=== PATIENT | male | born 1950 | race Caucasian/White ===

== ENCOUNTER 2018-11-12 14:04 | Inpatient (IN) ==
[2018-11-12 15:13] LABS: Basophils # 0.1 10*3/uL (0.0-0.2); Eosinophils # 0.1 10*3/uL (0.0-0.87); Eosinophils % 1.5 % (0.00-10.9); Hematocrit 37.2 VOL% (42.0-52.0); Hemoglobin 12.6 GM/DL (14.0-18.0); Immature Granulocytes % 0.4 %; Immature Granulocytes Absolute 0.03 #; Lymphocytes # 1.1 10*3/uL (1.4-4.0); Lymphocytes % 16.5 % (21.2-54.2); Mean Corpuscular HGB Conc 33.9 GM/DL (32-36); Mean Corpuscular Volume 103.9 FL (87-102); Mean Platelet Volume 11.9 FL (9.6-12.0); Monocytes % 6.3 % (1.7-12.7); Neutrophils % 74.3 % (38.7-73.9); Platelet Count 109 T/CUMM (130-400); Red Blood Count 3.58 MC/CUMM (3.8-5.5); Red Cell Distribution Width 19.7 % (9.3-17.3); White Blood Count 6.7 T/CUMM (4-12)
[2018-11-12] MEDS ORDERED: SODIUM CHLORIDE 0.9% 1,000 ML IV STA ×2 (15:16→16:01)
[2018-11-12 15:22] LABS: INR 1.3; PT Patient Result 14.4 SECS; Partial Thromboplastin Time 30.8 SECS (0-40)
[2018-11-12 15:34] LABS: Albumin 1.9 G/DL (3.4-5.0); Calcium 8.3 MG/DL (8.5-10.1); Osmolality,Calculated 277.5 MOS/KG (273-304); Total Protein 7.6 G/DL (6.4-8.3)
[2018-11-12] MEDS ORDERED: PIPERACILLIN/TAZOBACTAM 3,375 MG in SODIUM CHLORIDE 0.9% 100 ML IV STA (16:00)
[2018-11-12] MEDS: SODIUM CHLOR 0.9% KCL 20 MEQ 20 MEQ/1,000 ML BAG IV SCH (17:08)
[2018-11-12 18:45] LABS: Hepatitis B Core IgM Quant 0.12 Index; Hepatitis B Surface Ag Quant < 0.10 Index; Hepatitis B Surface Ag Result Negative (Negative); Hepatitis C Virus Ab Quant 0.04 Index; Hepatitis C Virus Ab Result Negative (Negative)
[2018-11-12 18:52] LABS: Apearance,Urine CLEAR (Clear); Bacteria,Urine Occasional /HPF (Few); Blood, Urine Negative (Negative); Glucose,Urine (UA) Negative (Negative); Hyaline Casts,Urine 1 /LPF (0-3); Ketones,Urine Negative (Negative); Nitrite,Urine Negative (Negative); Protein,Urine Negative; RBC,Urine 2 /HPF (0-4); Squamous Epithelial Cell,Urine Occasional /HPF (0-10); Urine Color Amber (Yellow); Urine Specific Gravity > 1.060 (1.001-1.035); WBC,Urine 5 /HPF (0-6)
[2018-11-12 19:07] LABS: Bilirubin,Urine Moderate mg/dL (Negative)
[2018-11-12] MEDS: GABAPENTIN 300 MG CAPSULE PO SCH (21:38)
[2018-11-12] MEDS: DULoxetine 30 MG CAPSULE PO SCH (21:38)
[2018-11-13] MEDS: PIPERACILLIN/TAZOBACTAM 3,375 MG in SODIUM CHLORIDE 0.9% 100 ML IV SCH ×3 (00:45→17:16)
[2018-11-13 03:08] LABS: Basophils # 0.1 10*3/uL (0.0-0.2); Eosinophils # 0.1 10*3/uL (0.0-0.87); Eosinophils % 1.2 % (0.00-10.9); Hematocrit 32.4 VOL% (42.0-52.0); Hemoglobin 10.8 GM/DL (14.0-18.0); Immature Granulocytes % 0.3 %; Immature Granulocytes Absolute 0.02 #; Lymphocytes % 16.3 % (21.2-54.2); Mean Corpuscular HGB Conc 33.3 GM/DL (32-36); Mean Corpuscular Volume 104.9 FL (87-102); Mean Platelet Volume 12.2 FL (9.6-12.0); Neutrophils % 71.2 % (38.7-73.9); Platelet Count 101 T/CUMM (130-400); Red Blood Count 3.09 MC/CUMM (3.8-5.5); Red Cell Distribution Width 19.7 % (9.3-17.3)
[2018-11-13 03:33] LABS: Platelet Estimate Adequate
[2018-11-13 03:34] LABS: Target Cells 2+
[2018-11-13 03:46] LABS: Albumin 1.5 G/DL (3.4-5.0); Bilirubin,Total 8.2 MG/DL (0.2-1.0); Calcium 7.5 MG/DL (8.5-10.1); Risk Ratio 17.55; Thyroid Stimulating Hormone 13.5 uIU/ml (0.358-3.74); Total Protein 6.2 G/DL (6.4-8.3); VLDL CHOLESTEROL 52.4 MG/DL
[2018-11-13] MEDS: SODIUM CHLOR 0.9% KCL 20 MEQ 20 MEQ/1,000 ML BAG IV SCH ×4 (06:00→18:04)
[2018-11-13] MEDS ORDERED: CLOPIDOGREL 75 MG TABLET PO SCH (09:00)
[2018-11-13] MEDS ORDERED: TAMSULOSIN 0.4 MG CAPSULE PO SCH (09:00)
[2018-11-13] MEDS: ASPIRIN EC 81 MG TABLET PO SCH (09:56)
[2018-11-13] MEDS: FINASTERIDE 5 MG TABLET PO SCH (09:56)
[2018-11-13] MEDS: DULoxetine 30 MG CAPSULE PO SCH ×2 (09:56→20:25)
[2018-11-13] MEDS: THYROID 60 MG TABLET PO SCH (09:56)
[2018-11-13] MEDS: GABAPENTIN 300 MG CAPSULE PO SCH ×3 (09:56→20:25)
[2018-11-13] MEDS: BACITRACIN OINT 0.9 GM PACK TOP SCH (12:15)
[2018-11-13] MEDS: SODIUM CHLORIDE 0.9% 1,000 ML IV SCH ×2 (13:03→13:53)
[2018-11-14] MEDS: PIPERACILLIN/TAZOBACTAM 3,375 MG in SODIUM CHLORIDE 0.9% 100 ML IV SCH ×3 (00:19→16:22)
[2018-11-14 05:08] LABS: Basophils # 0.1 10*3/uL (0.0-0.2); Basophils % 1.1 % (0.0-0.8); Eosinophils # 0.1 10*3/uL (0.0-0.87); Eosinophils % 1.5 % (0.00-10.9); Hematocrit 31.8 VOL% (42.0-52.0); Hemoglobin 10.9 GM/DL (14.0-18.0); Immature Granulocytes % 0.4 %; Immature Granulocytes Absolute 0.03 #; Lymphocytes # 1.1 10*3/uL (1.4-4.0); Lymphocytes % 16.1 % (21.2-54.2); Mean Corpuscular HGB Conc 34.3 GM/DL (32-36); Mean Corpuscular Volume 103.6 FL (87-102); Mean Platelet Volume 12.3 FL (9.6-12.0); Monocytes % 9.7 % (1.7-12.7); Neutrophils % 71.2 % (38.7-73.9); Platelet Count 92 T/CUMM (130-400); Red Blood Count 3.07 MC/CUMM (3.8-5.5); Red Cell Distribution Width 18.9 % (9.3-17.3); White Blood Count 7.1 T/CUMM (4-12)
[2018-11-14 05:22] LABS: Albumin 1.6 G/DL (3.4-5.0); Bilirubin,Total 7.9 MG/DL (0.2-1.0); Calcium 7.4 MG/DL (8.5-10.1); Total Protein 6.5 G/DL (6.4-8.3)
[2018-11-14 05:26] LABS: % Iron Saturation 95.1 % (18-50); Ferritin 1128.3 ng/ml (26-388)
[2018-11-14] MEDS: THYROID 60 MG TABLET PO SCH (07:17)
[2018-11-14 08:04] LABS: Free T4 (Free Thyroxine) 1.06 NG/DL (0.76-1.46)
[2018-11-14] MEDS: SODIUM CHLORIDE 0.9% 1,000 ML IV SCH ×2 (09:24→14:41)
[2018-11-14] MEDS: BACITRACIN OINT 0.9 GM PACK TOP SCH (09:25)
[2018-11-14] MEDS: FINASTERIDE 5 MG TABLET PO SCH (09:25)
[2018-11-14] MEDS: GABAPENTIN 300 MG CAPSULE PO SCH ×3 (09:25→20:40)
[2018-11-14] MEDS: POTASSIUM CHLORIDE 20 MEQ TABLET PO SCH ×2 (09:25→12:23)
[2018-11-14] MEDS: DULoxetine 30 MG CAPSULE PO SCH ×2 (09:25→20:40)
[2018-11-14] MEDS: ASPIRIN EC 81 MG TABLET PO SCH (09:25)
[2018-11-15] MEDS: PIPERACILLIN/TAZOBACTAM 3,375 MG in SODIUM CHLORIDE 0.9% 100 ML IV SCH ×3 (01:11→16:30)
[2018-11-15] MEDS ORDERED: traMADol 50 MG TABLET PO ONE (04:00)
[2018-11-15 06:05] LABS: Basophils # 0.1 10*3/uL (0.0-0.2); Basophils % 0.8 % (0.0-0.8); Eosinophils # 0.1 10*3/uL (0.0-0.87); Eosinophils % 1.5 % (0.00-10.9); Hematocrit 33.6 VOL% (42.0-52.0); Hemoglobin 11.4 GM/DL (14.0-18.0); Immature Granulocytes % 0.3 %; Immature Granulocytes Absolute 0.02 #; Lymphocytes # 1.1 10*3/uL (1.4-4.0); Lymphocytes % 14.3 % (21.2-54.2); Mean Corpuscular HGB Conc 33.9 GM/DL (32-36); Mean Corpuscular Volume 105.7 FL (87-102); Mean Platelet Volume 11.9 FL (9.6-12.0); Monocytes % 9.4 % (1.7-12.7); Neutrophils % 73.7 % (38.7-73.9); Platelet Count 107 T/CUMM (130-400); Red Blood Count 3.18 MC/CUMM (3.8-5.5); Red Cell Distribution Width 18.8 % (9.3-17.3); White Blood Count 7.8 T/CUMM (4-12)
[2018-11-15] MEDS: SODIUM CHLORIDE 0.9% 1,000 ML IV SCH (06:18)
[2018-11-15 06:24] LABS: Albumin 1.5 G/DL (3.4-5.0); Bilirubin,Direct 6.52 MG/DL (0.0-0.20); Bilirubin,Total 8.5 MG/DL (0.2-1.0); Calcium 7.8 MG/DL (8.5-10.1); Osmolality,Calculated 271.1 MOS/KG (273-304); Total Protein 6.4 G/DL (6.4-8.3); Total Protein 6.6 G/DL (6.4-8.3)
[2018-11-15] MEDS: THYROID 60 MG TABLET PO SCH (07:07)
[2018-11-15] MEDS: POTASSIUM CHLORIDE RIDER 10 MEQ in PREMIX 1 EACH IV PRN ×2 (07:13→09:04)
[2018-11-15] MEDS: ASPIRIN EC 81 MG TABLET PO SCH (09:03)
[2018-11-15] MEDS: DULoxetine 30 MG CAPSULE PO SCH ×2 (09:03→22:10)
[2018-11-15] MEDS: GABAPENTIN 300 MG CAPSULE PO SCH ×3 (09:04→22:10)
[2018-11-15] MEDS: BACITRACIN OINT 0.9 GM PACK TOP SCH (09:04)
[2018-11-15] MEDS: FINASTERIDE 5 MG TABLET PO SCH (09:04)
[2018-11-15] MEDS ORDERED: POTASSIUM CHLORIDE 20 MEQ TABLET PO ONE (10:22)
[2018-11-15] MEDS: MORPHINE 4 MG/1 ML VIAL IV PRN (17:26)
[2018-11-16] MEDS: PIPERACILLIN/TAZOBACTAM 3,375 MG in SODIUM CHLORIDE 0.9% 100 ML IV SCH ×2 (01:35→09:38)
[2018-11-16] MEDS: THYROID 60 MG TABLET PO SCH (06:03)
[2018-11-16 06:33] LABS: Basophils # 0.1 10*3/uL (0.0-0.2); Basophils % 1.3 % (0.0-0.8); Eosinophils # 0.2 10*3/uL (0.0-0.87); Eosinophils % 2.9 % (0.00-10.9); Hemoglobin 11.7 GM/DL (14.0-18.0); Immature Granulocytes % 0.4 %; Immature Granulocytes Absolute 0.03 #; Lymphocytes # 1.3 10*3/uL (1.4-4.0); Lymphocytes % 16.2 % (21.2-54.2); Mean Corpuscular HGB Conc 33.4 GM/DL (32-36); Mean Corpuscular Volume 106.4 FL (87-102); Mean Platelet Volume 11.9 FL (9.6-12.0); Monocytes % 9.4 % (1.7-12.7); Neutrophils % 69.8 % (38.7-73.9); Platelet Count 103 T/CUMM (130-400); Red Blood Count 3.29 MC/CUMM (3.8-5.5); Red Cell Distribution Width 18.9 % (9.3-17.3); White Blood Count 7.9 T/CUMM (4-12)
[2018-11-16 07:05] LABS: Albumin 1.5 G/DL (3.4-5.0); Bilirubin,Direct 6.43 MG/DL (0.0-0.20); Bilirubin,Indirect 1.4 MG/DL (0.0-1.0); Bilirubin,Total 7.8 MG/DL (0.2-1.0); Calcium 7.3 MG/DL (8.5-10.1); Osmolality,Calculated 272.8 MOS/KG (273-304); Total Protein 6.4 G/DL (6.4-8.3)
[2018-11-16] MEDS ORDERED: POTASSIUM CHLORIDE 20 MEQ TABLET PO ONE (07:18)
[2018-11-16] MEDS: BACITRACIN OINT 0.9 GM PACK TOP SCH (09:35)
[2018-11-16] MEDS: GABAPENTIN 300 MG CAPSULE PO SCH (09:35)
[2018-11-16] MEDS: DULoxetine 30 MG CAPSULE PO SCH (09:35)
[2018-11-16] MEDS: ASPIRIN EC 81 MG TABLET PO SCH (09:35)
[2018-11-16] MEDS: FINASTERIDE 5 MG TABLET PO SCH (09:35)
[2018-11-16] MEDS: MORPHINE 4 MG/1 ML VIAL IV PRN (11:29)
[2018-11-16 13:04] VITALS: BP 111/72
== END 2018-11-16 13:10 | DRG 433 ==
LOC: N.ED 14:04 → N.EDINP 16:04 → N.5E 18:58
PROVIDERS: ADMIT Internal Medicine; ATTEND Internal Medicine

== ENCOUNTER 2018-12-05 06:45 | Inpatient (IN) ==
[2018-12-05] MEDS ORDERED: SODIUM CHLORIDE 0.9% 500 ML IV STA ×2 (07:06→07:39)
[2018-12-05 07:15] LABS: Basophils % 0.2 % (0.0-0.8); Eosinophils % 0.1 % (0.00-10.9); Hematocrit 33.4 VOL% (42.0-52.0); Hemoglobin 11.3 GM/DL (14.0-18.0); Immature Granulocytes % 0.7 %; Immature Granulocytes Absolute 0.12 #; Lymphocytes # 0.6 10*3/uL (1.4-4.0); Lymphocytes % 3.7 % (21.2-54.2); Mean Corpuscular HGB Conc 33.8 GM/DL (32-36); Mean Corpuscular Volume 106.7 FL (87-102); Mean Platelet Volume 10.8 FL (9.6-12.0); Neutrophils % 88.3 % (38.7-73.9); Platelet Count 128 T/CUMM (130-400); Red Blood Count 3.13 MC/CUMM (3.8-5.5); Red Cell Distribution Width 15.2 % (9.3-17.3); White Blood Count 16.8 T/CUMM (4-12)
[2018-12-05 07:37] LABS: Albumin 1.5 G/DL (3.4-5.0); Bilirubin,Total 3.4 MG/DL (0.2-1.0); Calcium 7.9 MG/DL (8.5-10.1); Osmolality,Calculated 272.2 MOS/KG (273-304); Total Protein 6.3 G/DL (6.4-8.3)
[2018-12-05 07:38] LABS: Band Neutrophils 5 % (0-10); Hypochromasia 1+; Lymphocytes 3 % (20-55); Segmented Neutrophils 89 % (50-85); Total Cells Counted 100
[2018-12-05 07:39] LABS: INR 1.5; PT Patient Result 16.1 SECS; Platelet Estimate Decreased
[2018-12-05] MEDS ORDERED: NOREPINEPHRINE 4 MG/4 ML VIAL IV ONE (08:04)
[2018-12-05] MEDS: NOREPINEPHRINE 8 MG in SODIUM CHLORIDE 0.9% 242 ML IV PRN ×2 (08:13→15:14)
[2018-12-05] MEDS ORDERED: LACTULOSE 20 GM/30 ML UDCUP PO PRN (09:52)
[2018-12-05] MEDS ORDERED: ONDANSETRON 4 MG/2 ML VIAL IV PRN (09:52)
[2018-12-05] MEDS: PANTOPRAZOLE 40 MG TABLET PO SCH (10:51)
[2018-12-05] MEDS: ALBUMIN 25% 25 GM in PREMIX 1 EACH IV SCH ×2 (10:54→18:07)
[2018-12-06] MEDS: PHENYLEPHRINE DRIP 40 MG/250 ML PREMIX IV PRN ×3 (00:54→13:29)
[2018-12-06] MEDS: ALBUMIN 25% 25 GM in PREMIX 1 EACH IV SCH ×2 (02:39→10:54)
[2018-12-06] MEDS: NOREPINEPHRINE 8 MG in SODIUM CHLORIDE 0.9% 242 ML IV PRN ×3 (03:25→15:59)
[2018-12-06 04:42] LABS: Basophils % 0.1 % (0.0-0.8); Hematocrit 29.8 VOL% (42.0-52.0); Immature Granulocytes % 2.5 %; Immature Granulocytes Absolute 0.56 #; Lymphocytes # 0.6 10*3/uL (1.4-4.0); Lymphocytes % 2.8 % (21.2-54.2); Mean Corpuscular HGB Conc 33.6 GM/DL (32-36); Mean Corpuscular Volume 106.8 FL (87-102); Mean Platelet Volume 11.7 FL (9.6-12.0); Monocytes % 7.4 % (1.7-12.7); Neutrophils % 87.2 % (38.7-73.9); Platelet Count 108 T/CUMM (130-400); Red Blood Count 2.79 MC/CUMM (3.8-5.5); Red Cell Distribution Width 15.2 % (9.3-17.3); White Blood Count 22.4 T/CUMM (4-12)
[2018-12-06 05:40] LABS: Albumin 2.6 G/DL (3.4-5.0); Calcium 8.1 MG/DL (8.5-10.1); Thyroid Stimulating Hormone 5.63 uIU/ml (0.358-3.74); Total Protein 6.6 G/DL (6.4-8.3)
[2018-12-06 06:17] LABS: Band Neutrophils 9 % (0-10); Hypochromasia 1+; Lymphocytes 1 % (20-55); Platelet Estimate Decreased; Segmented Neutrophils 89 % (50-85); Total Cells Counted 100
[2018-12-06] MEDS: THYROID 60 MG TABLET PO SCH (07:02)
[2018-12-06] MEDS: PANTOPRAZOLE 40 MG TABLET PO SCH (08:34)
[2018-12-06] MEDS: LACTULOSE 20 GM/30 ML UDCUP PO SCH ×3 (09:50→22:06)
[2018-12-06] MEDS ORDERED: cefTRIAXone 1,000 MG VIAL IM SCH (14:00)
[2018-12-06] MEDS: cefTRIAXone 1,000 MG in SYRINGE 1 EACH IV SCH (14:51)
[2018-12-06] MEDS ORDERED: LORazepam 2 MG/1 ML VIAL IV PRN (21:41)
[2018-12-06 23:13] LABS: Apearance,Urine CLOUDY (Clear); Bacteria,Urine Moderate /HPF (Few); Bilirubin,Urine Negative (Negative); Blood, Urine Large mg/dL (Negative); Glucose,Urine (UA) Negative (Negative); Hyaline Casts,Urine 25 /LPF (0-3); Ketones,Urine Negative (Negative); Mucus,Urine Occasional /LPF (Occasional); Nitrite,Urine Positive (Negative); Protein,Urine 100 MG/DL; RBC,Urine 173 /HPF (0-4); Urine Color Amber (Yellow); Urine Specific Gravity 1.018 (1.001-1.035); WBC,Urine 374 /HPF (0-6)
[2018-12-07] MEDS: LACTULOSE 20 GM/30 ML UDCUP PO SCH ×3 (04:02→13:06)
[2018-12-07 04:54] LABS: Albumin 2.4 G/DL (3.4-5.0); Bilirubin,Total 3.6 MG/DL (0.2-1.0); Calcium 7.9 MG/DL (8.5-10.1); Osmolality,Calculated 275.1 MOS/KG (273-304); Total Protein 6.4 G/DL (6.4-8.3)
[2018-12-07] MEDS: THYROID 60 MG TABLET PO SCH (06:28)
[2018-12-07 08:18] LABS: Basophils # 0.1 10*3/uL (0.0-0.2); Basophils % 0.4 % (0.0-0.8); Eosinophils % 0.2 % (0.00-10.9); Hematocrit 32.3 VOL% (42.0-52.0); Hemoglobin 10.6 GM/DL (14.0-18.0); Immature Granulocytes Absolute 0.33 #; Lymphocytes % 5.9 % (21.2-54.2); Mean Corpuscular HGB Conc 32.8 GM/DL (32-36); Mean Corpuscular Volume 110.6 FL (87-102); Mean Platelet Volume 11.8 FL (9.6-12.0); Monocytes % 8.3 % (1.7-12.7); Neutrophils % 83.2 % (38.7-73.9); Platelet Count 84 T/CUMM (130-400); Red Blood Count 2.92 MC/CUMM (3.8-5.5); Red Cell Distribution Width 15.3 % (9.3-17.3); White Blood Count 16.7 T/CUMM (4-12)
[2018-12-07 08:35] LABS: Band Neutrophils 4 % (0-10); Hypochromasia 1+; Lymphocytes 1 % (20-55); Platelet Estimate Decreased; Segmented Neutrophils 87 % (50-85); Total Cells Counted 100
[2018-12-07] MEDS: PANTOPRAZOLE 40 MG TABLET PO SCH ×2 (09:29→13:04)
[2018-12-07] MEDS ORDERED: HALOPERIDOL 5 MG/ML AMP IV PRN (10:25)
[2018-12-07] MEDS: metroNIDAZOLE INJ 500 MG in PREMIX 1 EACH IV SCH ×2 (13:09→20:15)
[2018-12-07] MEDS: cefTRIAXone 1,000 MG in SYRINGE 1 EACH IV SCH (14:28)
[2018-12-07] MEDS: GENTAMICIN INJ 500 MG in SODIUM CHLORIDE 0.9% 100 ML IV SCH (16:25)
[2018-12-07] MEDS ORDERED: ALBUTEROL/IPRATROPIUM 3 ML NEB RESP TX PRN (21:19)
[2018-12-07] MEDS: NICOTINE 21 MG/24 HR PATCH TRANSDERM SCH (22:00)
[2018-12-08] MEDS: metroNIDAZOLE INJ 500 MG in PREMIX 1 EACH IV SCH ×3 (04:43→20:42)
[2018-12-08 04:59] LABS: Basophils % 0.2 % (0.0-0.8); Eosinophils # 0.1 10*3/uL (0.0-0.87); Eosinophils % 0.8 % (0.00-10.9); Hematocrit 34.8 VOL% (42.0-52.0); Hemoglobin 11.4 GM/DL (14.0-18.0); Immature Granulocytes % 0.4 %; Immature Granulocytes Absolute 0.04 #; Lymphocytes # 1.2 10*3/uL (1.4-4.0); Mean Corpuscular HGB Conc 32.8 GM/DL (32-36); Mean Corpuscular Volume 106.1 FL (87-102); Mean Platelet Volume 11.1 FL (9.6-12.0); Monocytes % 8.6 % (1.7-12.7); Platelet Count 89 T/CUMM (130-400); Red Blood Count 3.28 MC/CUMM (3.8-5.5); Red Cell Distribution Width 14.4 % (9.3-17.3); White Blood Count 10.6 T/CUMM (4-12)
[2018-12-08 05:31] LABS: Platelet Estimate Decreased; Target Cells Few
[2018-12-08 05:37] LABS: Albumin 2.1 G/DL (3.4-5.0); Calcium 8.5 MG/DL (8.5-10.1); Total Protein 6.4 G/DL (6.4-8.3)
[2018-12-08] MEDS: THYROID 60 MG TABLET PO SCH (06:23)
[2018-12-08] MEDS: POTASSIUM CHLORIDE 20 MEQ TABLET PO SCH ×4 (08:02→20:42)
[2018-12-08] MEDS: NICOTINE 21 MG/24 HR PATCH TRANSDERM SCH (09:18)
[2018-12-08] MEDS: LACTULOSE 20 GM/30 ML UDCUP PO SCH (09:18)
[2018-12-08] MEDS: PANTOPRAZOLE 40 MG TABLET PO SCH (09:19)
[2018-12-08] MEDS: cefTRIAXone 1,000 MG in SYRINGE 1 EACH IV SCH (14:44)
[2018-12-08] MEDS ORDERED: NITROGLYCERIN SL 0.4 MG TABLET SL PRN (15:07)
[2018-12-08] MEDS: GENTAMICIN INJ 500 MG in SODIUM CHLORIDE 0.9% 100 ML IV SCH (16:03)
[2018-12-09] MEDS: metroNIDAZOLE INJ 500 MG in PREMIX 1 EACH IV SCH ×3 (05:36→20:26)
[2018-12-09 06:25] LABS: Albumin 2.3 G/DL (3.4-5.0); Bilirubin,Total 4.1 MG/DL (0.2-1.0); Calcium 8.3 MG/DL (8.5-10.1); Total Protein 6.8 G/DL (6.4-8.3)
[2018-12-09] MEDS: THYROID 60 MG TABLET PO SCH (06:45)
[2018-12-09] MEDS: ASPIRIN EC 81 MG TABLET PO SCH (09:24)
[2018-12-09] MEDS: SPIRONOLACTONE 25 MG TABLET PO SCH (09:24)
[2018-12-09] MEDS: FINASTERIDE 5 MG TABLET PO SCH (09:24)
[2018-12-09] MEDS: TAMSULOSIN 0.4 MG CAPSULE PO SCH (09:24)
[2018-12-09] MEDS: LACTULOSE 20 GM/30 ML UDCUP PO SCH (09:25)
[2018-12-09] MEDS: CLOPIDOGREL 75 MG TABLET PO SCH (09:25)
[2018-12-09] MEDS: NICOTINE 21 MG/24 HR PATCH TRANSDERM SCH (09:25)
[2018-12-09] MEDS: PANTOPRAZOLE 40 MG TABLET PO SCH (09:25)
[2018-12-09] MEDS: CHOLECALCIFEROL 1,000 UNIT TABLET PO SCH (09:31)
[2018-12-09] MEDS: POTASSIUM CHLORIDE RIDER 10 MEQ in PREMIX 1 EACH IV PRN ×3 (09:32→13:10)
[2018-12-09] MEDS ORDERED: MAGNESIUM SULF RIDER 2 GM in PREMIX 1 EACH IV ONE (10:22)
[2018-12-09] MEDS: cefTRIAXone 2,000 MG in SYRINGE 1 EACH IV SCH (16:30)
[2018-12-09] MEDS: AMPICILLIN 500 MG CAPSULE PO SCH ×2 (17:37→20:26)
[2018-12-10] MEDS: metroNIDAZOLE INJ 500 MG in PREMIX 1 EACH IV SCH ×2 (03:59→15:40)
[2018-12-10 05:45] LABS: Bilirubin,Total 3.7 MG/DL (0.2-1.0); Calcium 8.4 MG/DL (8.5-10.1); Osmolality,Calculated 272.8 MOS/KG (273-304); Total Protein 6.2 G/DL (6.4-8.3)
[2018-12-10] MEDS: THYROID 60 MG TABLET PO SCH (06:00)
[2018-12-10] MEDS: ASPIRIN EC 81 MG TABLET PO SCH (08:59)
[2018-12-10] MEDS: PANTOPRAZOLE 40 MG TABLET PO SCH (08:59)
[2018-12-10] MEDS: LACTULOSE 20 GM/30 ML UDCUP PO SCH (08:59)
[2018-12-10] MEDS: TAMSULOSIN 0.4 MG CAPSULE PO SCH (08:59)
[2018-12-10] MEDS: AMPICILLIN 500 MG CAPSULE PO SCH ×4 (09:00→21:09)
[2018-12-10] MEDS: CLOPIDOGREL 75 MG TABLET PO SCH (09:00)
[2018-12-10] MEDS: FINASTERIDE 5 MG TABLET PO SCH (09:00)
[2018-12-10] MEDS: CHOLECALCIFEROL 1,000 UNIT TABLET PO SCH (09:00)
[2018-12-10] MEDS: NICOTINE 21 MG/24 HR PATCH TRANSDERM SCH (09:00)
[2018-12-10] MEDS: SPIRONOLACTONE 25 MG TABLET PO SCH (09:00)
[2018-12-10] MEDS: POTASSIUM CHLORIDE RIDER 10 MEQ in PREMIX 1 EACH IV PRN ×3 (12:16→14:32)
[2018-12-10] MEDS: MORPHINE 4 MG/1 ML VIAL IV PRN (15:39)
[2018-12-10] MEDS: cefTRIAXone 2,000 MG in SYRINGE 1 EACH IV SCH (15:39)
[2018-12-11 04:57] LABS: Bilirubin,Total 3.6 MG/DL (0.2-1.0); Calcium 8.1 MG/DL (8.5-10.1); Osmolality,Calculated 270.1 MOS/KG (273-304); Total Protein 6.7 G/DL (6.4-8.3)
[2018-12-11] MEDS: THYROID 60 MG TABLET PO SCH (06:00)
[2018-12-11] MEDS: TAMSULOSIN 0.4 MG CAPSULE PO SCH (08:48)
[2018-12-11] MEDS: ASPIRIN EC 81 MG TABLET PO SCH (08:48)
[2018-12-11] MEDS: AMPICILLIN 500 MG CAPSULE PO SCH ×2 (08:48→13:31)
[2018-12-11] MEDS: FINASTERIDE 5 MG TABLET PO SCH (08:48)
[2018-12-11] MEDS: NICOTINE 21 MG/24 HR PATCH TRANSDERM SCH (08:48)
[2018-12-11] MEDS: CLOPIDOGREL 75 MG TABLET PO SCH (08:48)
[2018-12-11] MEDS: CHOLECALCIFEROL 1,000 UNIT TABLET PO SCH (08:48)
[2018-12-11] MEDS: PANTOPRAZOLE 40 MG TABLET PO SCH (08:48)
[2018-12-11] MEDS: SPIRONOLACTONE 25 MG TABLET PO SCH (08:49)
[2018-12-11] MEDS: POTASSIUM CHLORIDE RIDER 10 MEQ in PREMIX 1 EACH IV PRN ×3 (08:49→11:43)
[2018-12-11] MEDS: LACTULOSE 20 GM/30 ML UDCUP PO SCH ×2 (08:49→21:14)
[2018-12-11] MEDS: cefTRIAXone 2,000 MG in SYRINGE 1 EACH IV SCH (13:31)
[2018-12-12] MEDS: THYROID 60 MG TABLET PO SCH (06:05)
[2018-12-12] MEDS ORDERED: POTASSIUM CHLORIDE 20 MEQ TABLET PO ONE (07:37)
[2018-12-12 08:13] LABS: Basophils # 0.1 10*3/uL (0.0-0.2); Basophils % 0.9 % (0.0-0.8); Eosinophils # 0.3 10*3/uL (0.0-0.87); Eosinophils % 3.1 % (0.00-10.9); Hematocrit 39.7 VOL% (42.0-52.0); Hemoglobin 13.2 GM/DL (14.0-18.0); Immature Granulocytes % 1.1 %; Lymphocytes # 1.3 10*3/uL (1.4-4.0); Lymphocytes % 14.9 % (21.2-54.2); Mean Corpuscular HGB Conc 33.2 GM/DL (32-36); Mean Corpuscular Volume 103.4 FL (87-102); Mean Platelet Volume 10.7 FL (9.6-12.0); Platelet Count 164 T/CUMM (130-400); Red Blood Count 3.84 MC/CUMM (3.8-5.5); Red Cell Distribution Width 14.6 % (9.3-17.3); White Blood Count 8.8 T/CUMM (4-12)
[2018-12-12 08:34] LABS: Band Neutrophils 23 % (0-10); Eosinophils 5 % (0-10); Lymphocytes 5 % (20-55); Platelet Estimate Normal; Segmented Neutrophils 59 % (50-85); Total Cells Counted 100
[2018-12-12 08:35] LABS: Anisocytosis Slight; Macrocytosis 1+; Target Cells Few
[2018-12-12] MEDS ORDERED: ALBUMIN 25% 50 GM in PREMIX 1 EACH IV ONE (09:30)
[2018-12-12] MEDS: CHOLECALCIFEROL 1,000 UNIT TABLET PO SCH (09:44)
[2018-12-12] MEDS: SPIRONOLACTONE 25 MG TABLET PO SCH (09:45)
[2018-12-12] MEDS: TAMSULOSIN 0.4 MG CAPSULE PO SCH (09:45)
[2018-12-12] MEDS: FINASTERIDE 5 MG TABLET PO SCH (09:45)
[2018-12-12] MEDS: LACTULOSE 20 GM/30 ML UDCUP PO SCH ×2 (09:46→20:56)
[2018-12-12] MEDS: NICOTINE 21 MG/24 HR PATCH TRANSDERM SCH (09:46)
[2018-12-12] MEDS: CLOPIDOGREL 75 MG TABLET PO SCH (09:46)
[2018-12-12] MEDS: ASPIRIN EC 81 MG TABLET PO SCH (09:46)
[2018-12-12] MEDS: PANTOPRAZOLE 40 MG TABLET PO SCH (09:46)
[2018-12-12 14:34] LABS: Neutrophils,Peritoneal Fluid 26 %
[2018-12-12 14:36] LABS: RBC,Peritoneal Fluid 147 T/CUMM
[2018-12-12] MEDS: cefTRIAXone 2,000 MG in SYRINGE 1 EACH IV SCH (15:51)
[2018-12-12] MEDS: MORPHINE 4 MG/1 ML VIAL IV PRN (21:11)
[2018-12-13] MEDS: THYROID 60 MG TABLET PO SCH (07:01)
[2018-12-13] MEDS: FINASTERIDE 5 MG TABLET PO SCH (08:51)
[2018-12-13] MEDS: CLOPIDOGREL 75 MG TABLET PO SCH (08:52)
[2018-12-13] MEDS: CHOLECALCIFEROL 1,000 UNIT TABLET PO SCH (08:52)
[2018-12-13] MEDS: PANTOPRAZOLE 40 MG TABLET PO SCH (08:52)
[2018-12-13] MEDS: ASPIRIN EC 81 MG TABLET PO SCH (08:52)
[2018-12-13] MEDS: LACTULOSE 20 GM/30 ML UDCUP PO SCH (08:53)
[2018-12-13] MEDS: SPIRONOLACTONE 25 MG TABLET PO SCH (08:53)
[2018-12-13] MEDS: NICOTINE 21 MG/24 HR PATCH TRANSDERM SCH (08:54)
[2018-12-13] MEDS: TAMSULOSIN 0.4 MG CAPSULE PO SCH (08:55)
[2018-12-13 13:01] VITALS: BP 131/89
== END 2018-12-13 12:40 | DRG 871 ==
LOC: EDUNIT# → EDBD → N.ED 06:45 → SUATTDRO 09:52 → N.EDINP 09:52 → N.ICU 10:22 → N.5E 12-08 16:37
PROVIDERS: ADMIT Internal Medicine; ATTEND Internal Medicine

== ENCOUNTER 2019-09-27 10:48 | Inpatient (IN) ==
[2019-09-27] MEDS ORDERED: PANTOPRAZOLE 40 MG VIAL IV STA (11:16)
[2019-09-27] MEDS ORDERED: SODIUM CHLORIDE 0.9% 500 ML IV STA (11:16)
[2019-09-27] MEDS ORDERED: ONDANSETRON 4 MG/2 ML VIAL IV STA (11:16)
[2019-09-27 11:54] LABS: Basophils # 0.1 10*3/uL (0.0-0.2); Basophils % 0.6 % (0.0-0.8); Eosinophils % 0.1 % (0.00-10.9); Hematocrit 31.1 VOL% (42.0-52.0); Hemoglobin 10.1 GM/DL (14.0-18.0); Immature Granulocytes % 0.6 %; Immature Granulocytes Absolute 0.09 #; Lymphocytes # 3.5 10*3/uL (1.4-4.0); Lymphocytes % 23.7 % (21.2-54.2); Mean Corpuscular HGB Conc 32.5 GM/DL (32-36); Mean Corpuscular Volume 92.6 FL (87-102); Mean Platelet Volume 11.3 FL (9.6-12.0); Monocytes % 11.5 % (1.7-12.7); Neutrophils % 63.5 % (38.7-73.9); Platelet Count 194 T/CUMM (130-400); Red Blood Count 3.36 MC/CUMM (3.8-5.5); Red Cell Distribution Width 16.3 % (9.3-17.3); White Blood Count 14.8 T/CUMM (4-12)
[2019-09-27 12:15] LABS: Alanine Aminotransferase 30 U/L (16-61); Albumin 2.8 G/DL (3.4-5.0); Alkaline Phosphatase 89 U/L (45-117); Aspartate Amino Transferase 35 U/L (0-37); Blood Urea Nitrogen 40 MG/DL (7-18); Calcium 8.7 MG/DL (8.5-10.1); Estimated Glom Filtration Rate 85 ML/MIN; Glucose 184 MG/DL (74-106); Osmolality,Calculated 280.4 MOS/KG (273-304); Total Protein 7.6 G/DL (6.4-8.3); Troponin I 0.067 NG/ML (0.00-0.045)
[2019-09-27 12:16] LABS: Amylase 49 U/L (25-115)
[2019-09-27 12:18] LABS: INR 1.3; Partial Thromboplastin Time 27.1 SECS (20.8-36.0)
[2019-09-27] MEDS ORDERED: ONDANSETRON 4 MG/2 ML VIAL IV PRN (13:56)
[2019-09-27] MEDS ORDERED: THIAMINE INJ 100 MG, FOLIC ACID INJ 1 MG, MULTIVITAMIN INJ 10 ML in SODIUM CHLORIDE 0.9... IV ONE (15:00)
[2019-09-27 15:58] LABS: Risk Ratio 4.07; VLDL CHOLESTEROL 29.4 MG/DL
[2019-09-27 16:27] LABS: Hematocrit 27.9 VOL% (42.0-52.0); Hemoglobin 9.1 GM/DL (14.0-18.0)
[2019-09-27 16:49] LABS: INR 1.3
[2019-09-27 17:09] LABS: Barbiturates Screen,Urine Negative (Negative); Benzodiazepines Screen,Urine Negative (Negative); Cannabinoid Screen,Urine Negative (Negative); Opiate Screen,Urine Negative (Negative); Phencyclidine Screen,Urine Negative (Negative)
[2019-09-27] MEDS ORDERED: SODIUM CHLORIDE 0.9% 1,000 ML IV PRN (17:18)
[2019-09-27] MEDS ORDERED: MELATONIN 3 MG TABLET PO PRN (18:51)
[2019-09-27] MEDS ORDERED: NITROGLYCERIN SL 0.4 MG TABLET SL PRN (18:51)
[2019-09-27] MEDS ORDERED: OCTREOTIDE 100 MCG/ML SYRINGE IV ONE (19:00)
[2019-09-27] MEDS: NICOTINE 21 MG/24 HR PATCH TRANSDERM SCH (19:49)
[2019-09-27] MEDS: PANTOPRAZOLE 40 MG VIAL IV SCH (20:10)
[2019-09-27] MEDS: chlordiazePOXIDE 25 MG CAPSULE PO SCH ×2 (20:12→23:46)
[2019-09-27] MEDS: LACTULOSE 20 GM/30 ML UDCUP PO SCH (20:12)
[2019-09-27] MEDS: OCTREOTIDE 500 MCG in SODIUM CHLORIDE 0.9% 100 ML IV SCH (20:19)
[2019-09-27 23:56] LABS: Hematocrit 24.8 VOL% (42.0-52.0); Hemoglobin 8.1 GM/DL (14.0-18.0)
[2019-09-28 03:24] LABS: Basophils # 0.1 10*3/uL (0.0-0.2); Basophils % 0.7 % (0.0-0.8); Eosinophils # 0.2 10*3/uL (0.0-0.87); Eosinophils % 2.8 % (0.00-10.9); Hematocrit 23.7 VOL% (42.0-52.0); Hemoglobin 7.7 GM/DL (14.0-18.0); Immature Granulocytes % 0.5 %; Immature Granulocytes Absolute 0.04 #; Lymphocytes # 3.1 10*3/uL (1.4-4.0); Lymphocytes % 35.4 % (21.2-54.2); Mean Corpuscular HGB Conc 32.5 GM/DL (32-36); Mean Platelet Volume 10.8 FL (9.6-12.0); Monocytes % 11.3 % (1.7-12.7); Neutrophils % 49.3 % (38.7-73.9); Platelet Count 105 T/CUMM (130-400); Red Blood Count 2.52 MC/CUMM (3.8-5.5); Red Cell Distribution Width 16.5 % (9.3-17.3); White Blood Count 8.6 T/CUMM (4-12)
[2019-09-28 03:44] LABS: Albumin 2.4 G/DL (3.4-5.0); Calcium 8.2 MG/DL (8.5-10.1); Osmolality,Calculated 280.8 MOS/KG (273-304); Total Protein 6.3 G/DL (6.4-8.3)
[2019-09-28] MEDS: chlordiazePOXIDE 25 MG CAPSULE PO SCH ×4 (04:00→16:02)
[2019-09-28] MEDS: THYROID 60 MG TABLET PO SCH (05:32)
[2019-09-28] MEDS: OCTREOTIDE 500 MCG in SODIUM CHLORIDE 0.9% 100 ML IV SCH ×2 (05:33→21:25)
[2019-09-28] MEDS: LACTULOSE 20 GM/30 ML UDCUP PO SCH ×2 (09:30→21:19)
[2019-09-28] MEDS: PANTOPRAZOLE 40 MG VIAL IV SCH ×2 (09:31→21:20)
[2019-09-28] MEDS: NICOTINE 21 MG/24 HR PATCH TRANSDERM SCH (09:31)
[2019-09-28] MEDS ORDERED: ACETAMINOPHEN 325 MG TABLET PO ONE ×2 (09:53→09:54)
[2019-09-28] MEDS: THIAMINE 200 MG/2 ML VIAL IV SCH (10:24)
[2019-09-28 13:24] LABS: Hematocrit 31.7 VOL% (42.0-52.0); Hemoglobin 10.5 GM/DL (14.0-18.0)
[2019-09-29] MEDS: LORazepam 2 MG/1 ML VIAL IV PRN ×2 (00:15→21:49)
[2019-09-29] MEDS: chlordiazePOXIDE 25 MG CAPSULE PO SCH ×7 (04:13→21:49)
[2019-09-29] MEDS: THYROID 60 MG TABLET PO SCH (07:26)
[2019-09-29 09:19] LABS: Basophils # 0.1 10*3/uL (0.0-0.2); Basophils % 1.3 % (0.0-0.8); Eosinophils # 0.3 10*3/uL (0.0-0.87); Eosinophils % 5.8 % (0.00-10.9); Hematocrit 32.8 VOL% (42.0-52.0); Hemoglobin 10.5 GM/DL (14.0-18.0); Immature Granulocytes % 0.4 %; Immature Granulocytes Absolute 0.02 #; Lymphocytes # 1.3 10*3/uL (1.4-4.0); Lymphocytes % 27.1 % (21.2-54.2); Mean Corpuscular Volume 92.9 FL (87-102); Mean Platelet Volume 10.9 FL (9.6-12.0); Neutrophils % 52.4 % (38.7-73.9); Red Blood Count 3.53 MC/CUMM (3.8-5.5); Red Cell Distribution Width 16.6 % (9.3-17.3); White Blood Count 4.6 T/CUMM (4-12)
[2019-09-29 09:23] LABS: Platelet Count 88 T/CUMM (130-400)
[2019-09-29] MEDS: LACTULOSE 20 GM/30 ML UDCUP PO SCH ×2 (09:35→21:49)
[2019-09-29] MEDS: THIAMINE 200 MG/2 ML VIAL IV SCH (09:35)
[2019-09-29] MEDS: NICOTINE 21 MG/24 HR PATCH TRANSDERM SCH (09:36)
[2019-09-29 09:37] LABS: Hypochromasia 1+; Platelet Estimate Decreased
[2019-09-29] MEDS: PANTOPRAZOLE 40 MG VIAL IV SCH ×2 (09:38→23:20)
[2019-09-29 09:45] LABS: Albumin 2.5 G/DL (3.4-5.0); Osmolality,Calculated 275.8 MOS/KG (273-304); Total Protein 6.9 G/DL (6.4-8.3)
[2019-09-29] MEDS: OCTREOTIDE 500 MCG in SODIUM CHLORIDE 0.9% 100 ML IV SCH ×2 (21:48→23:21)
[2019-09-30] MEDS: chlordiazePOXIDE 25 MG CAPSULE PO SCH ×6 (03:40→21:59)
[2019-09-30] MEDS: THYROID 60 MG TABLET PO SCH (06:00)
[2019-09-30 07:48] LABS: Basophils # 0.1 10*3/uL (0.0-0.2); Basophils % 1.3 % (0.0-0.8); Eosinophils # 0.2 10*3/uL (0.0-0.87); Eosinophils % 4.9 % (0.00-10.9); Hematocrit 32.3 VOL% (42.0-52.0); Hemoglobin 10.6 GM/DL (14.0-18.0); Immature Granulocytes % 0.4 %; Immature Granulocytes Absolute 0.02 #; Lymphocytes # 1.3 10*3/uL (1.4-4.0); Lymphocytes % 27.2 % (21.2-54.2); Mean Corpuscular HGB Conc 32.8 GM/DL (32-36); Mean Corpuscular Volume 91.8 FL (87-102); Mean Platelet Volume 10.7 FL (9.6-12.0); Monocytes % 9.6 % (1.7-12.7); Neutrophils % 56.6 % (38.7-73.9); Red Blood Count 3.52 MC/CUMM (3.8-5.5); Red Cell Distribution Width 16.6 % (9.3-17.3); White Blood Count 4.7 T/CUMM (4-12)
[2019-09-30 07:49] LABS: Platelet Count 98 T/CUMM (130-400)
[2019-09-30 08:02] LABS: Albumin 2.5 G/DL (3.4-5.0); Bilirubin,Total 1.2 MG/DL (0.2-1.0); Calcium 8.1 MG/DL (8.5-10.1); Osmolality,Calculated 273.8 MOS/KG (273-304); Total Protein 7.1 G/DL (6.4-8.3)
[2019-09-30 08:05] LABS: Platelet Estimate Decreased
[2019-09-30 08:06] LABS: Anisocytosis 1+; Hypochromasia Slight; Macrocytosis Slight
[2019-09-30] MEDS ORDERED: propofoL 200 MG/20 ML VIAL IV ONE (09:00)
[2019-09-30] MEDS ORDERED: LIDOCAINE 2% 5 ML VIAL ONE (09:00)
[2019-09-30] MEDS ORDERED: LACTATED RINGERS 1,000 ML IV SCH (10:00)
[2019-09-30] MEDS: THIAMINE 200 MG/2 ML VIAL IV SCH (10:40)
[2019-09-30] MEDS: LACTULOSE 20 GM/30 ML UDCUP PO SCH ×2 (10:40→21:59)
[2019-09-30] MEDS: PANTOPRAZOLE 40 MG VIAL IV SCH ×2 (10:57→21:59)
[2019-09-30] MEDS: NICOTINE 21 MG/24 HR PATCH TRANSDERM SCH (10:58)
[2019-09-30] MEDS: OCTREOTIDE 500 MCG in SODIUM CHLORIDE 0.9% 100 ML IV SCH ×3 (11:26→18:20)
[2019-09-30] MEDS: LORazepam 2 MG/1 ML VIAL IV PRN (18:36)
[2019-10-01] MEDS: chlordiazePOXIDE 25 MG CAPSULE PO SCH ×4 (00:59→12:05)
[2019-10-01] MEDS: OCTREOTIDE 500 MCG in SODIUM CHLORIDE 0.9% 100 ML IV SCH (00:59)
[2019-10-01] MEDS: THYROID 60 MG TABLET PO SCH (06:08)
[2019-10-01] MEDS: LACTULOSE 20 GM/30 ML UDCUP PO SCH (09:17)
[2019-10-01] MEDS: THIAMINE 200 MG/2 ML VIAL IV SCH (09:18)
[2019-10-01] MEDS: NICOTINE 21 MG/24 HR PATCH TRANSDERM SCH (09:18)
[2019-10-01 09:53] LABS: Hematocrit 37.2 VOL% (42.0-52.0); Hemoglobin 12.2 GM/DL (14.0-18.0)
[2019-10-01 11:33] VITALS: BP 135/86
[2019-10-01] MEDS: PANTOPRAZOLE 40 MG VIAL IV SCH (12:05)
== END 2019-10-01 13:47 | disposition home or self-care (01) | DRG 432 ==
LOC: N.EDINP 10:48 → N.ED 10:48 → N.2W 13:37 → SUATTDRO 18:17 → N.3E 09-28 16:37
PROVIDERS: ADMIT Family Medicine; ATTEND Emergency Medicine
PROC: EGDWEBL (ICD-10-PCS; 2019-09-30 12:35)

== ENCOUNTER 2020-08-15 10:02 | Inpatient (IN) ==
[2020-08-15] MEDS ORDERED: ASPIRIN 325 MG TABLET PO STA (10:35)
[2020-08-15 10:45] LABS: Basophils % 0.6 % (0.0-0.8); Eosinophils % 0.8 % (0.00-10.9); Immature Granulocytes % 0.2 %; Immature Granulocytes Absolute 0.01 #; Lymphocytes # 1.3 10*3/uL (1.4-4.0); Lymphocytes % 26.3 % (21.2-54.2); Mean Corpuscular HGB Conc 27.7 GM/DL (32-36); Mean Corpuscular Volume 81.2 FL (87-102); Mean Platelet Volume 11.3 FL (9.6-12.0); Monocytes % 13.7 % (1.7-12.7); NRBC # 0.02 10*3/uL; Neutrophils % 58.4 % (38.7-73.9); Platelet Count 126 T/CUMM (130-400); Red Blood Count 2.13 MC/CUMM (3.8-5.5); Red Cell Distribution Width 19.3 % (9.3-17.3); White Blood Count 4.8 T/CUMM (4-12)
[2020-08-15 10:50] LABS: Hemoglobin 4.8 GM/DL (14.0-18.0)
[2020-08-15 10:51] LABS: Hematocrit 17.3 VOL% (42.0-52.0)
[2020-08-15] MEDS ORDERED: PANTOPRAZOLE 40 MG VIAL IV STA (10:52)
[2020-08-15 11:17] LABS: Bilirubin,Total 0.5 MG/DL (0.2-1.0); Calcium 7.9 MG/DL (8.5-10.1); Osmolality,Calculated 279.7 MOS/KG (273-304); Potassium 3.7 MMOL/L (3.5-5.1); Total Protein 6.7 G/DL (6.4-8.3)
[2020-08-15 11:28] LABS: INR 1.3; PT Patient Result 13.3 SECS (9.8-11.9)
[2020-08-15 11:31] LABS: Atypical Lymphocytes Few; Eosinophils 2 % (0-10); Hypochromasia 2+; Lymphocytes 28 % (20-55); Microcytosis 1+; Nucleated Red Blood Cells 1 (0-5); Polychromasia Slight; Segmented Neutrophils 58 % (50-85); Total Cells Counted 100
[2020-08-15 11:32] LABS: Platelet Estimate Adequate
[2020-08-15] MEDS ORDERED: SODIUM CHLORIDE 0.9% 1,000 ML IV PRN (12:06)
[2020-08-15] MEDS ORDERED: GLUCAGON 1 MG VIAL IM PRN (13:10)
[2020-08-15] MEDS ORDERED: DEXTROSE 50% 25 GM/50 ML VIAL IV PRN (13:10)
[2020-08-15 19:49] LABS: Hematocrit 21.4 VOL% (42.0-52.0)
[2020-08-15 19:52] LABS: Hemoglobin 6.3 GM/DL (14.0-18.0)
[2020-08-15] MEDS: DULoxetine 30 MG CAPSULE PO SCH (20:51)
[2020-08-16 05:12] LABS: Basophils % 0.7 % (0.0-0.8); Eosinophils # 0.1 10*3/uL (0.0-0.87); Eosinophils % 2.8 % (0.00-10.9); Hematocrit 21.3 VOL% (42.0-52.0); Immature Granulocytes % 0.4 %; Immature Granulocytes Absolute 0.02 #; Lymphocytes # 1.4 10*3/uL (1.4-4.0); Lymphocytes % 30.8 % (21.2-54.2); Mean Platelet Volume 10.8 FL (9.6-12.0); Monocytes % 12.4 % (1.7-12.7); NRBC # 0.06 10*3/uL; Neutrophils % 52.9 % (38.7-73.9); Platelet Count 102 T/CUMM (130-400); Red Blood Count 2.63 MC/CUMM (3.8-5.5); White Blood Count 4.6 T/CUMM (4-12)
[2020-08-16 05:21] LABS: Hemoglobin 6.4 GM/DL (14.0-18.0)
[2020-08-16 05:43] LABS: Calcium 7.5 MG/DL (8.5-10.1); Osmolality,Calculated 271.1 MOS/KG (273-304); Potassium 3.7 MMOL/L (3.5-5.1)
[2020-08-16] MEDS ORDERED: SODIUM CHLORIDE 0.9% 1,000 ML IV PRN ×2 (07:46→07:47)
[2020-08-16] MEDS: DULoxetine 30 MG CAPSULE PO SCH ×2 (09:42→20:52)
[2020-08-16 14:59] LABS: Hematocrit 27.5 VOL% (42.0-52.0)
[2020-08-16 15:01] LABS: Hemoglobin 8.3 GM/DL (14.0-18.0)
[2020-08-17] MEDS: DULoxetine 30 MG CAPSULE PO SCH ×2 (08:58→21:22)
[2020-08-17 10:24] LABS: Troponin I 0.744 NG/ML (0.00-0.045)
[2020-08-17] MEDS: ISOSORBIDE MONONITRATE 30 MG TABLET PO SCH (10:58)
[2020-08-17] MEDS: PANTOPRAZOLE 40 MG TABLET PO SCH (10:58)
[2020-08-17] MEDS: PROPRANOLOL 10 MG TABLET PO SCH (21:22)
[2020-08-17] MEDS ORDERED: ACETAMINOPHEN 325 MG TABLET PO PRN (21:51)
[2020-08-18 05:28] LABS: Basophils % 0.6 % (0.0-0.8); Eosinophils # 0.2 10*3/uL (0.0-0.87); Hematocrit 27.1 VOL% (42.0-52.0); Hemoglobin 8.4 GM/DL (14.0-18.0); Immature Granulocytes % 0.4 %; Immature Granulocytes Absolute 0.02 #; Lymphocytes # 1.5 10*3/uL (1.4-4.0); Lymphocytes % 30.4 % (21.2-54.2); Mean Corpuscular Volume 80.2 FL (87-102); Mean Platelet Volume 10.8 FL (9.6-12.0); Monocytes % 12.2 % (1.7-12.7); NRBC # 0.03 10*3/uL; Neutrophils % 51.4 % (38.7-73.9); Platelet Count 101 T/CUMM (130-400); Red Blood Count 3.38 MC/CUMM (3.8-5.5); Red Cell Distribution Width 18.3 % (9.3-17.3); White Blood Count 4.8 T/CUMM (4-12)
[2020-08-18 05:47] LABS: Calcium 7.8 MG/DL (8.5-10.1); Osmolality,Calculated 270.8 MOS/KG (273-304); Potassium 3.7 MMOL/L (3.5-5.1)
[2020-08-18 05:53] LABS: Band Neutrophils 1 % (0-10); Eosinophils 4 % (0-10); Hypochromasia 1+; Lymphocytes 26 % (20-55); Microcytosis Slight; Platelet Estimate Adequate; Segmented Neutrophils 63 % (50-85); Total Cells Counted 100
[2020-08-18] MEDS: DULoxetine 30 MG CAPSULE PO SCH ×2 (08:14→21:18)
[2020-08-18] MEDS: ISOSORBIDE MONONITRATE 30 MG TABLET PO SCH (08:14)
[2020-08-18] MEDS: PROPRANOLOL 10 MG TABLET PO SCH ×2 (08:15→21:18)
[2020-08-18] MEDS: PANTOPRAZOLE 40 MG TABLET PO SCH (08:15)
[2020-08-18] MEDS ORDERED: propofoL 200 MG/20 ML VIAL IV ONE ×2 (13:08→13:27)
[2020-08-18] MEDS ORDERED: ETOMIDATE 20 MG/10 ML VIAL IV ONE (13:08)
[2020-08-18] MEDS ORDERED: LIDOCAINE 2% 5 ML VIAL ONE (13:08)
[2020-08-19 05:21] LABS: Basophils % 0.7 % (0.0-0.8); Eosinophils # 0.2 10*3/uL (0.0-0.87); Eosinophils % 4.1 % (0.00-10.9); Hematocrit 27.7 VOL% (42.0-52.0); Hemoglobin 8.8 GM/DL (14.0-18.0); Immature Granulocytes % 0.2 %; Immature Granulocytes Absolute 0.01 #; Lymphocytes # 1.2 10*3/uL (1.4-4.0); Mean Corpuscular HGB Conc 31.8 GM/DL (32-36); Mean Corpuscular Volume 79.1 FL (87-102); Mean Platelet Volume 11.3 FL (9.6-12.0); Monocytes % 11.5 % (1.7-12.7); Neutrophils % 57.5 % (38.7-73.9); Red Cell Distribution Width 18.8 % (9.3-17.3); White Blood Count 4.4 T/CUMM (4-12)
[2020-08-19 05:32] LABS: Platelet Count 91 T/CUMM (130-400)
[2020-08-19 05:38] LABS: Albumin 2.7 G/DL (3.4-5.0); Bilirubin,Direct 0.4 MG/DL (0.0-0.20); Bilirubin,Indirect 1.5 MG/DL (0.0-1.0); Bilirubin,Total 1.9 MG/DL (0.2-1.0); Calcium 7.9 MG/DL (8.5-10.1); Osmolality,Calculated 273.7 MOS/KG (273-304); Potassium 3.6 MMOL/L (3.5-5.1); Total Protein 6.6 G/DL (6.4-8.3)
[2020-08-19 05:47] LABS: Hypochromasia 1+; Microcytosis 1+; Platelet Estimate Decreased
[2020-08-19] MEDS: PANTOPRAZOLE 40 MG TABLET PO SCH (08:17)
[2020-08-19] MEDS: PROPRANOLOL 10 MG TABLET PO SCH (08:17)
[2020-08-19] MEDS: DULoxetine 30 MG CAPSULE PO SCH (08:17)
[2020-08-19] MEDS: ISOSORBIDE MONONITRATE 30 MG TABLET PO SCH (08:17)
[2020-08-19] MEDS: LACTATED RINGERS 1,000 ML IV SCH ×2 (08:27→11:18)
[2020-08-19 11:53] VITALS: BP 106/66
== END 2020-08-19 13:05 | disposition home or self-care (01) | DRG 441 ==
LOC: N.EDINP 10:02 → N.ED 10:02 → SUATTDRO 13:10 → N.TELEN 15:37
PROVIDERS: ADMIT Phlebology; ATTEND Internal Medicine
PROC: EGDWEBL (ICD-10-PCS; 2020-08-18 10:35)

== ENCOUNTER 2021-12-13 14:49 | Inpatient (IN) ==
[2021-12-13 19:43] LABS: Basophils # 0.1 10*3/uL (0.0-0.2); Eosinophils # 0.2 10*3/uL (0.0-0.87); Eosinophils % 2.8 % (0.00-10.9); Hematocrit 29.4 VOL% (42.0-52.0); Hemoglobin 9.6 GM/DL (14.0-18.0); Immature Granulocytes % 0.5 %; Immature Granulocytes Absolute 0.03 #; Lymphocytes # 1.2 10*3/uL (1.4-4.0); Lymphocytes % 20.1 % (21.2-54.2); Mean Corpuscular HGB Conc 32.7 GM/DL (32-36); Mean Corpuscular Volume 95.5 FL (87-102); Monocytes # 0.7 10*3/uL (0.11-0.8); Monocytes % 11.2 % (1.7-12.7); Neutrophils % 64.4 % (38.7-73.9); Red Blood Count 3.08 MC/CUMM (3.8-5.5); Red Cell Distribution Width 15.9 % (9.3-17.3)
[2021-12-13 19:47] LABS: Platelet Count 4 T/CUMM (130-400)
[2021-12-13 20:00] LABS: Albumin 2.6 G/DL (3.4-5.0); Bilirubin,Total 0.7 MG/DL (0.20-1.00); Calcium 8.3 MG/DL (8.5-10.1); Osmolality,Calculated 269.1 MOS/KG (273-304); Potassium 3.2 MMOL/L (3.5-5.1)
[2021-12-13 20:04] LABS: INR 1.1; PT Patient Result 12.4 SECS (10.5-12.0)
[2021-12-13] MEDS ORDERED: SODIUM CHLORIDE 0.9% 1,000 ML IV PRN (20:07)
[2021-12-13] MEDS ORDERED: DEXAMETHASONE 4 MG/1 ML VIAL IV STA (20:08)
[2021-12-13] MEDS ORDERED: DEXAMETHASONE 10 MG/1 ML VIAL ONE (20:10)
[2021-12-13] MEDS ORDERED: hydrALAZINE 20 MG/1 ML VIAL IV PRN (20:28)
[2021-12-13] MEDS ORDERED: DOCUSATE SODIUM 100 MG CAPSULE PO PRN (20:28)
[2021-12-13] MEDS ORDERED: ALUMINUM/MAGNES/SIMETH MAX STR 30 ML UDCUP PO PRN (20:28)
[2021-12-13] MEDS ORDERED: ONDANSETRON 4 MG/2 ML VIAL IV PRN (20:28)
[2021-12-13] MEDS ORDERED: ACETAMINOPHEN 325 MG TABLET PO PRN (20:28)
[2021-12-13] MEDS ORDERED: GLUCAGON 1 MG VIAL IM PRN (20:28)
[2021-12-13 20:30] LABS: % Iron Saturation 5.7 % (18-50); Ferritin 18.4 ng/mL (26-388)
[2021-12-13] MEDS ORDERED: DEXTROSE 10% 250 ML BAG IV PRN (20:46)
[2021-12-13] MEDS ORDERED: POTASSIUM CHLORIDE 20 MEQ TABLET PO STA (20:47)
[2021-12-13] MEDS: PANTOPRAZOLE 40 MG VIAL IV SCH (20:57)
[2021-12-13] MEDS ORDERED: ZALEPLON 5 MG CAPSULE PO ONE (23:30)
[2021-12-14 00:56] LABS: Basophils % 0.2 % (0.0-0.8); Eosinophils % 0.5 % (0.00-10.9); Hemoglobin 8.8 GM/DL (14.0-18.0); Immature Granulocytes % 0.7 %; Immature Granulocytes Absolute 0.03 #; Lymphocytes # 0.5 10*3/uL (1.4-4.0); Lymphocytes % 12.4 % (21.2-54.2); Mean Corpuscular HGB Conc 32.6 GM/DL (32-36); Mean Corpuscular Volume 94.7 FL (87-102); Mean Platelet Volume 13.7 FL (9.6-12.0); Monocytes # 0.1 10*3/uL (0.11-0.8); Monocytes % 2.2 % (1.7-12.7); Red Blood Count 2.85 MC/CUMM (3.8-5.5); Red Cell Distribution Width 15.7 % (9.3-17.3); White Blood Count 4.1 T/CUMM (4-12)
[2021-12-14 02:07] LABS: Lymphocytes 14 % (20-55)
[2021-12-14 02:08] LABS: Platelet Estimate Decreased; Total Cells Counted 100
[2021-12-14 04:17] LABS: Basophils % 0.2 % (0.0-0.8); Eosinophils % 0.2 % (0.00-10.9); Hematocrit 28.2 VOL% (42.0-52.0); Hemoglobin 9.2 GM/DL (14.0-18.0); Immature Granulocytes % 0.5 %; Immature Granulocytes Absolute 0.02 #; Lymphocytes # 0.6 10*3/uL (1.4-4.0); Lymphocytes % 15.8 % (21.2-54.2); Mean Corpuscular HGB Conc 32.6 GM/DL (32-36); Mean Corpuscular Volume 95.3 FL (87-102); Monocytes # 0.1 10*3/uL (0.11-0.8); Monocytes % 2.5 % (1.7-12.7); Neutrophils % 80.8 % (38.7-73.9); Red Blood Count 2.96 MC/CUMM (3.8-5.5); Red Cell Distribution Width 15.6 % (9.3-17.3)
[2021-12-14 04:21] LABS: Platelet Count 7 T/CUMM (130-400)
[2021-12-14 04:34] LABS: Platelet Estimate Decreased
[2021-12-14 04:40] LABS: Calcium 8.5 MG/DL (8.5-10.1); Osmolality,Calculated 278.2 MOS/KG (273-304); Potassium 4.4 MMOL/L (3.5-5.1)
[2021-12-14] MEDS: PANTOPRAZOLE 40 MG VIAL IV SCH (08:51)
[2021-12-14] MEDS: FERROUS SULFATE 325 MG TABLET PO SCH ×2 (08:51→21:34)
[2021-12-14] MEDS ORDERED: DEXAMETHASONE 10 MG/1 ML VIAL IV SCH (09:00)
[2021-12-14] MEDS ORDERED: ACETAMINOPHEN 500 MG TABLET PO ONE (11:12)
[2021-12-14] MEDS ORDERED: diphenhydrAMINE CAP 25 MG CAPSULE PO ONE (11:12)
[2021-12-14] MEDS ORDERED: FAMOTIDINE 20 MG/2 ML VIAL IV ONE (11:13)
[2021-12-14] MEDS: FERRIC GLUCONATE COMPLEX 125 MG in SODIUM CHLORIDE 0.9% 100 ML IV SCH (13:55)
[2021-12-14] MEDS: IMMUNE GLOBULIN 10% 20 GM, IMMUNE GLOBULIN 10% 10 GM in PREMIX 1 EACH IV SCH (16:56)
[2021-12-14] MEDS ORDERED: DEXAMETHASONE INJ 40 MG in SODIUM CHLORIDE 0.9% 50 ML IV ONE (20:30)
[2021-12-15 05:21] LABS: Basophils % 0.1 % (0.0-0.8); Hematocrit 26.4 VOL% (42.0-52.0); Hemoglobin 8.6 GM/DL (14.0-18.0); Immature Granulocytes % 1.4 %; Immature Granulocytes Absolute 0.15 #; Lymphocytes # 0.8 10*3/uL (1.4-4.0); Lymphocytes % 7.2 % (21.2-54.2); Mean Corpuscular HGB Conc 32.6 GM/DL (32-36); Monocytes # 0.4 10*3/uL (0.11-0.8); Monocytes % 3.8 % (1.7-12.7); Neutrophils % 87.5 % (38.7-73.9); Red Blood Count 2.78 MC/CUMM (3.8-5.5); Red Cell Distribution Width 15.8 % (9.3-17.3)
[2021-12-15 05:23] LABS: Platelet Count 19 T/CUMM (130-400)
[2021-12-15 05:40] LABS: Albumin 2.4 G/DL (3.4-5.0); Bilirubin,Total 0.6 MG/DL (0.20-1.00); Calcium 8.4 MG/DL (8.5-10.1); Osmolality,Calculated 284.1 MOS/KG (273-304); Potassium 4.9 MMOL/L (3.5-5.1); Total Protein 7.7 G/DL (6.4-8.2)
[2021-12-15 05:42] LABS: Platelet Estimate Decreased
[2021-12-15 05:43] LABS: Folate 21.06 NG/ML (5.38-24.0)
[2021-12-15 08:44] LABS: Platelet Count 12 T/CUMM (130-400)
[2021-12-15] MEDS ORDERED: DEXAMETHASONE INJ 40 MG in SODIUM CHLORIDE 0.9% 50 ML IV SCH (09:00)
[2021-12-15] MEDS: PANTOPRAZOLE 40 MG VIAL IV SCH (09:24)
[2021-12-15] MEDS: FERROUS SULFATE 325 MG TABLET PO SCH ×2 (09:24→20:00)
[2021-12-15] MEDS: FERRIC GLUCONATE COMPLEX 125 MG in SODIUM CHLORIDE 0.9% 100 ML IV SCH (09:25)
[2021-12-15] MEDS: IMMUNE GLOBULIN 10% 20 GM, IMMUNE GLOBULIN 10% 10 GM in PREMIX 1 EACH IV SCH (11:37)
[2021-12-15] MEDS ORDERED: ZALEPLON 5 MG CAPSULE PO PRN (21:59)
[2021-12-16 05:19] LABS: Basophils % 0.1 % (0.0-0.8); Hematocrit 29.3 VOL% (42.0-52.0); Hemoglobin 9.2 GM/DL (14.0-18.0); Immature Granulocytes Absolute 0.35 #; Lymphocytes # 0.7 10*3/uL (1.4-4.0); Lymphocytes % 5.7 % (21.2-54.2); Mean Corpuscular HGB Conc 31.4 GM/DL (32-36); Mean Corpuscular Volume 95.1 FL (87-102); Monocytes # 0.7 10*3/uL (0.11-0.8); Monocytes % 5.6 % (1.7-12.7); NRBC # 0.06 10*3/uL; Neutrophils % 85.6 % (38.7-73.9); Platelet Count 40 T/CUMM (130-400); Red Blood Count 3.08 MC/CUMM (3.8-5.5); White Blood Count 11.8 T/CUMM (4-12)
[2021-12-16 05:37] LABS: Albumin 2.8 G/DL (3.4-5.0); Calcium 8.7 MG/DL (8.5-10.1); Osmolality,Calculated 277.4 MOS/KG (273-304); Potassium 3.7 MMOL/L (3.5-5.1); Total Protein 9.1 G/DL (6.4-8.2)
[2021-12-16 05:44] LABS: Platelet Estimate Decreased
[2021-12-16 09:20] VITALS: BP 136/84
== END 2021-12-16 09:46 | disposition home or self-care (01) | DRG 813 ==
LOC: N.ED 14:49 → N.EDINP 20:28 → N.3E 12-14 14:35
PROVIDERS: ADMIT Family Medicine; ATTEND Family Medicine